=== PATIENT | male | born 1970 | race Caucasian/White ===

== ENCOUNTER 2017-04-23 18:48 | Emergency (ER) | payer OTHER ==
[~2017-04-23] VITALS: Ht 172.7 cm; Wt 106.6 kg
[2017-04-23 18:50] VITALS: BP 146/90
[2017-04-23] MEDS ORDERED: DOCUSATE 50 MG/5 ML ORAL SOL ONE (19:12)
[2017-04-23] MEDS ORDERED: DOCUSATE 50 MG/5 ML ORAL SOL OT ONE (19:30)
== END 2017-04-23 19:48 | disposition home or self-care (01) ==
LOC: ED 19:00
DX: H60.91 Unspecified otitis externa, right ear (principal); H61.21 Impacted cerumen, right ear; E78.5 Hyperlipidemia, unspecified
CPT/HCPCS: 69209; 99282

== ENCOUNTER 2017-04-24 20:44 | Emergency (ER) | payer OTHER ==
[~2017-04-24] VITALS: Ht 170.2 cm; Wt 108.0 kg
[2017-04-24 21:03] VITALS: BP 175/105
[2017-04-24] MEDS ORDERED: DOCUSATE 50 MG/5 ML ORAL SOL ONE (21:31)
== END 2017-04-24 22:31 | disposition home or self-care (01) ==
LOC: ED 21:49
DX: H61.22 Impacted cerumen, left ear (principal); I10 Essential (primary) hypertension; E78.5 Hyperlipidemia, unspecified
CPT/HCPCS: 69209; 99282